=== PATIENT | female | born 1950 | race Caucasian/White ===

== ENCOUNTER 2020-11-04 06:49 | Day surgery (SDC) | payer MEDICARE, OTHER ==
[~2020-11-04] VITALS: Ht 162.6 cm; Wt 64.2 kg
[~2020-11-04 06:49] MED LIST: ATOR20 PO; BCOIRO PO; CALCAVITDA PO; ESCI20 PO; FLAX PO; METO50ER PO; OMEP20ER PO; POTCHL10ER PO; TEMA30 PO; TRIHYD253A PO
--- NOTE | 2020-11-04 07:09 | NUR ---
History, Chart, Medications and Allergies reviewed before start of procedure. Patient confirms NPO status and agrees with scheduled surgery. Reports taking all of her prep with clear results. Patient States Post-Procedure ride home has been arranged with her , Manuel.
[2020-11-04] MEDS ORDERED: DYAZIDE 37.5-21 EACH PO (07:19)
[2020-11-04] MEDS ORDERED: TEMA30 PO (07:20)
[2020-11-04] MEDS ORDERED: GABA300 PO (07:20)
[2020-11-04] MEDS ORDERED: K-Dur 20 meq T20 MEQ PO (07:21)
--- NOTE | 2020-11-04 07:39 | NUR ---
REPORT GIVEN TO DAMON MORENO RN.
--- NOTE | 2020-11-04 08:06 | NUR ---
11/04/20 0806 Radha Castillo PATIENT DETERMINED TO BE ASA APPROPRIATE FOR MODERATE SEDATION PRIOR TO START OF PROCEDURE BY DR. DE GUZMAN. 3-LEAD EKG REVIEWED WITH PHYSICIAN PRIOR TO START OF PROCEDURE. MONITOR INTACT WITH CONTINUOUS PULSE OXIMETRY AND INTERMITTENT BP.
--- NOTE | 2020-11-04 10:05 | NUR ---
Patient up to Ambulate independently. Gait steady. Discharge instructions reviewed with patient. Patient verbalizes understanding. Copy given to patient to take home. Discharged via wheelchair to private car for ride home.WITH SPOUSE
== END 2020-11-04 22:39 | disposition home or self-care (01) ==
LOC: ORSCMMR 06:49 → ORD 08:00 → ORSCMMR 22:39
PROVIDERS: Internal Medicine Gastroenterology
PROC: 0DBK8ZX Excision of Ascending Colon, Via Natural or Artificial Opening Endoscopic, Diagnostic (ICD-10-PCS; principal; 2020-11-04 08:00)
PROC: 0DBN8ZX Excision of Sigmoid Colon, Via Natural or Artificial Opening Endoscopic, Diagnostic (ICD-10-PCS; principal; 2020-11-04 08:00)
DX: R19.4 Change in bowel habit (principal); D12.2 Benign neoplasm of ascending colon; K64.8 Other hemorrhoids; I10 Essential (primary) hypertension; E78.00 Pure hypercholesterolemia, unspecified; G47.33 Obstructive sleep apnea (adult) (pediatric); K21.9 Gastro-esophageal reflux disease without esophagitis; Z79.899 Other long term (current) drug therapy; Z87.891 Personal history of nicotine dependence
CPT/HCPCS: 88305; J2250; J3010; J7120

== ENCOUNTER → 2022-02-24 | Outpatient (CLI) | payer MEDICARE, OTHER ==
[~2022-02-24] MED LIST changes: +CEPH500 PO; +DYAZIDE 37.5-21 EACH PO; +GABA300 PO; +K-Dur 20 meq T20 MEQ PO; +Percocet 5-3251 EACH PO
== END ==
LOC: LAB SHORT 15:30 → LAB 15:30
PROVIDERS: Family Medicine
DX: Z12.72 Encounter for screening for malignant neoplasm of vagina (principal); Z90.710 Acquired absence of both cervix and uterus
CPT/HCPCS: G0145